=== PATIENT | male | born 1990 | race African-American/Black ===

== ENCOUNTER 2024-09-05 18:13 | Emergency (ER) | payer OTHER ==
[2024-09-05 18:22] VITALS: RESP 18
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
[2024-09-05] MEDS: HYDROcodone/APAP 5-325MG 1 EACH TAB PO STA (18:53)
[2024-09-05 20:14] VITALS: BP 121/79; PULSE 79; TEMP 97.9
[2024-09-05] MEDS: HYDROcodone/APAP 7.5-325MG 1 EACH TAB PO ONE (20:32)
== END 2024-09-05 20:37 | disposition home or self-care (01) ==
LOC: EC 18:13
DX: R52 Pain, unspecified (principal); F17.200 Nicotine dependence, unspecified, uncomplicated; V89.2XXA Person injured in unspecified motor-vehicle accident, traffic, initial encounter; Y92.410 Unspecified street and highway as the place of occurrence of the external cause
CPT/HCPCS: 99284

== ENCOUNTER 2024-09-06 15:03 | Emergency (ER) | payer OTHER ==
[2024-09-06 15:10] VITALS: RESP 18; TEMP 97.8
[2024-09-06] MEDS: HYDROcodone/APAP 7.5-325MG 1 EACH TAB PO ONE (16:04)
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
[2024-09-06] MEDS: HYDROcodone/APAP 5-325MG 1 EACH TAB PO STA (17:17)
[2024-09-06 17:42] VITALS: BP 138/84; PULSE 78
== END 2024-09-06 17:41 | disposition home or self-care (01) ==
LOC: EC 15:03
DX: R52 Pain, unspecified (principal); F17.200 Nicotine dependence, unspecified, uncomplicated
CPT/HCPCS: 99284